=== PATIENT | female | born 1995 | race African-American/Black ===

== ENCOUNTER 2016-07-14 17:40 | Emergency (ER) | payer BC ==
[~2016-07-14] VITALS: Ht 162.6 cm; Wt 89.3 kg
[2016-07-14 17:47] VITALS: Ht 162.6 cm; Wt 89.3 kg
--- NOTE | 2016-07-14 20:48 | RADRPT ---
PROCEDURE: X-ray left knee CLINICAL INDICATION: Pain in the left knee during dancing. TECHNIQUE: 3 views left knee. COMPARISON: None FINDINGS: Reference marker directed towards the medial left knee, without evident underlying radiographic abno rmality. No acute fracture or dislocation. Soft tissues unremarkable. No evident joint fluid. IMPRESSION: No acute fracture. RPTAT: [facility] Physician Theresa Date Time Electronically viewed and signed by Carrie Bauer Physician on 07/14/2016 20:48 RS/
[2016-07-14] MEDS ORDERED: NAPR-260 PO (21:01)
[2016-07-14 21:28] VITALS: BP 120/62; PULSE 72; RESP 20; TEMP 98.1
--- NOTE | 2016-07-14 21:29 | ERD ---
ER Documentation Chief Complaint Date/Time DATE: 07/14/16 TIME: 21:27 Chief Complaint LEFT KNEE PAIN HPI Patient is a 21-year-old female who presents to the ED with left knee pain after sustaining an injury during dancing. She states that she does dance at school and for the last 5 days she has had pain in her left knee. She denies any falls or hitting her head or losing consciousness but states that she has pain on the sides of her knee. She is able to ambulate but when she extends her leg in a straight manner she has pain. She denies pain above or below her knee joint. She denies fever or chills. She denies abdominal pain, nausea, vomiting or diarrhea. She has no other complaints. ROS All systems reviewed and are negative except as per history of present illness. Medications Home Meds Active Scripts Naproxen* (Naprosyn*) 500 Mg Tablet, 500 MG PO BID Y for PAIN AND/OR INFLAMMATION, #30 TAB Prov:MIGUEL ANGEL KNIGHT PA-C 07/14/16 Allergies Allergies: Coded Allergies: No Known Allergy (Unverified , 07/14/16) PMhx/Soc Medical and Surgical Hx: pt denies Medical Hx History of Surgery: Yes (GALLBLADDER REMOVAL) Hx Alcohol Use: Yes (SOCIAL USE ) Hx Substance Use: No Hx Tobacco Use: No Smoking Status: Never smoker Physical Exam Vitals Vital Signs Date Time Temp Pulse Resp B/P Pulse Ox O2 Delivery O2 Flow Rate FiO2 07/14/16 17:47 98.1 80 20 126/80 99 Physical Exam GENERAL: Well-developed, well-nourished female female. Appears in no acute distress. LUNG: Clear to auscultation bilaterally. No rhonchi, wheezing, rales or coarse breath sounds. HEART: Regular rate and rhythm. No murmurs, rubs or gallops. Extremities: Equal pulses bilaterally. No peripheral clubbing, cyanosis or edema. No unilateral leg swelling. Slight tenderness to the anterior knee with no step-offs or deformities. No open wounds or lacerations. No pain above or below the knee joint. Note pain at the proximal fibular joint. Negative Lockman's test. Negative Abbie test. No erythema or swelling or redness per NEUROLOGIC: Alert and oriented. Moving all four extremities. 5/5 strength in all extremities. Normal speech. Steady gait. SKIN: Normal color. Warm and dry. No rashes or lesions. Capillary refill < 2 seconds Procedures/MDM ER COURSE: I kept the patient and/or family informed of laboratory and diagnostic imaging results throughout the emergency room course. IMAGING STUDIES [place] [address] Radiology Main Line: [phone] DIAGNOSTIC IMAGING REPORT Patient: LULÚ VILLARREAL : 1995 Age: 21 Sex: F MR #: [id number] DOS: 07/14/161952 Ordering MD: MIGUEL ANGEL KNIGHT PA-C Location: [facility] Room/Bed: PROCEDURE: X-ray left knee CLINICAL INDICATION: Pain in the left knee during dancing. TECHNIQUE: 3 views left knee. COMPARISON: None FINDINGS: Reference marker directed towards the medial left knee, without evident underlying radiographic abnormality. No acute fracture or dislocation. Soft tissues unremarkable. No evident joint fluid. IMPRESSION: No acute fracture. RPTAT: [facility] Physician Theresa Date Time Electronically viewed and signed by Physician Theresa on 07/14/2016 20:48 RS/ CC: MIGUEL ANGEL KNIGHT PA-C MEDICAL DECISION MAKING: This is a 21-year-old who presents with left knee pain 5 days. Vital signs were reviewed. Patient is afebrile. Patient is not hypoxic. Patient is not toxic or ill-appearing. Patient likely has knee pain of unknown etiology. X- rays read by radiologist is unremarkable. Low suspicion for dislocation, fracture, septic joint, compartment syndrome, osteomyelitis, avascular necrosis , DVT, Achilles tendon rupture, cellulitis. At this time, unable to rule out any tendon and ligament injuries. Patient was given an Benito wrap here in the ED. Patient is neurovascularly intact post Benito wrap placement. DISCHARGE: At this time, patient is stable for discharge and outpatient management with no new complaints during the ER course. Patient was sent home with Mikhail, copy of imaging studies and a note for school.. Patient will be discharged home with instructions to recheck for new or worsening symptoms such as fever, nausea, weakness, LOC and to follow up with primary care in the next 1-2 days. Patient was advised to return to the ER for any new or worsening symptoms. Plan was discussed and patient and/or family understands and agrees. Home instructions were given. Departure Diagnosis: Primary Impression: Knee pain Laterality: left Chronicity: unspecified Qualified Code: M25.562 - Left knee pain, unspecified chronicity Condition: Stable Patient Instructions: Knee Pain, Uncertain Cause Additional Instructions: Call your primary care doctor TOMORROW for an appointment during the next 1-2 days.See the doctor sooner or return here if your condition worsens before your appointment time. MIGUEL ANGEL KNIGHT PA-C Jul 14, 2016 21:29
== END 2016-07-14 21:28 | disposition home or self-care (01) ==
LOC: FTE 17:40
DX: M25.562 Pain in left knee (principal); Z04.3 Encounter for examination and observation following other accident
CPT/HCPCS: 73562